=== PATIENT | male | born 1995 | race Caucasian/White ===

== ENCOUNTER 2020-09-11 16:22 | Emergency (ER) | payer BC, OTHER ==
--- OUTSIDE RECORDS SUMMARY | 2020-09-11 16:24 | XMS REPORT | Continuity of Care Document ---
:1995 Author Organization [facility] t Address [address] [place] [address] [address] [place] [address] Care Team Providers Name Role Phone Unavailable Unavailable Unavailable Problems This patient has no known problems. Allergies, Adverse Reactions, Alerts This patient has no known allergies or adverse reactions. Medications This patient has no known medications. Procedures This patient has no known procedures. Results This patient has no known results.
[2020-09-11] MEDS ORDERED: KETOROLAC 30 MG/ML INJ ONE (17:01)
[2020-09-11] MEDS ORDERED: dexAMETHasone 10 MG/ML VIAL ONE (17:01)
--- NOTE | 2020-09-11 17:49 | EDPHYS ---
Physician Documentation [facility] Name: Travis Nair Age: 24 yrs Sex: Male : 1995 Arrival Date: 09/11/2020 Time: 16:27 Bed 8 Private MD: ED Physician Jay Lambert HPI: 09/11 16:47 This 24 yrs old Male presents to ER via Ambulatory with complaints of Sore pm1 Throat. 16:47 The patient presents with sore throat. The patient describes throat pain as raw, pm1 scratchy. Onset: The symptoms/episode began/occurred 3 day(s) ago. Severity of symptoms: in the emergency department the symptoms are unchanged. Modifying factors: The symptoms are alleviated by nothing, the symptoms are aggravated by foods, swallowing, Patient's oral intake status: good unaware of sick contact. Associated signs and symptoms: Pertinent negatives cough, fever, vomiting. The patient has been recently seen by a physician: for apparently unrelated complaints, Root canal on Saturday. Historical: - Allergies: 16:40 No Known Allergies; sv - PMHx: 16:40 None; sv - PSHx: 16:40 None; sv - Immunization history:: Adult Immunizations up to date, Flu vaccine is not up to date. - Social history:: Smoking status: Patient denies any tobacco usage or history of. ROS: 16:47 Constitutional: Negative for fever, chills, and weight loss. pm1 16:47 Cardiovascular: Negative for chest pain, palpitations, and edema, Respiratory: Negative for shortness of breath, cough, wheezing, and pleuritic chest pain, Abdomen/GI: Negative for abdominal pain, nausea, vomiting, diarrhea, and constipation, MS/Extremity: Negative for injury and deformity, Skin: Negative for injury, rash, and discoloration. 16:47 Neuro: Negative for headache, weakness, numbness, tingling, and seizure. 16:47 ENT: Positive for sore throat, Negative for ear pain. 16:47 Neck: Positive for swollen nodes. Exam: 16:47 Constitutional: This is a well developed, well nourished patient who is awake, alert, pm1 and in no acute distress. Head/Face: Normocephalic, atraumatic. 16:47 Skin: Warm, dry with normal turgor. Normal color with no rashes, no lesions, and no evidence of cellulitis. MS/ Extremity: Pulses equal, no cyanosis. Neurovascular intact. Full, normal range of motion. 16:47 ENT: External ear(s): are unremarkable, Ear canal(s): are normal, TM's: Posterior pharynx: Airway: no evidence of obstruction, Tonsils: bilaterally enlarged, with erythema, no exudate, no ulcerations, Uvula: midline, erythema, that is moderate, peritonsillar mass, is not appreciated, pooling of secretions, is not appreciated. 16:47 Neck: Lymph nodes: lymphadenopathy is appreciated, anterior cervical nodes. 16:47 Cardiovascular: Exam negative for acute changes, Rate: normal, Rhythm: regular, Pulses: no pulse deficits are appreciated. 16:47 Respiratory: Exam negative for acute changes, respiratory distress, shortness of breath. 16:47 Neuro: Exam negative for acute changes, Orientation: is normal, Mentation: is normal, Motor: is normal, moves all fours. Vital Signs: 16:30 BP 134 / 101; Pulse 84; Resp 16; Pulse Ox 99% on R/A; vg1 16:38 BP 138 / 101; Pulse 91; Resp 16; Temp 96.9; Pulse Ox 98% ; Weight 108.86 kg; Height 5 sv ft. 10 in. (177.80 cm); 17:00 BP 126 / 91; Pulse 87; Resp 16; Pulse Ox 99% on R/A; vg1 17:30 BP 117 / 84; Pulse 85; Resp 14; Pulse Ox 99% on R/A; vg1 16:38 Body Mass Index 34.44 (108.86 kg, 177.80 cm) sv MDM: 16:34 Patient medically screened. pm1 17:47 Data reviewed: vital signs. Data interpreted: Pulse oximetry: on room air is 99 %. pm1 Interpretation: normal. Counseling: I had a detailed discussion with the patient and/or guardian regarding: the historical points, exam findings, and any diagnostic results supporting the discharge/admit diagnosis, lab results, the need for outpatient follow up, to return to the emergency department if symptoms worsen or persist or if there are any questions or concerns that arise at home. 09/11 16:43 Order name: Strep; Complete Time: 17:28 pm1 09/11 16:43 Order name: Flu; Complete Time: 18:36 pm1 09/11 17:27 Order name: Throat Culture EDMS Administered Medications: 16:53 Drug: Decadron 10 mg Route: IM; Site: left gluteus; vg1 17:26 Follow up: Response: No adverse reaction vg1 16:53 Drug: TORadol 60 mg Route: IM; Site: left gluteus; vg1 17:26 Follow up: Response: No adverse reaction; Pain is unchanged, physician notified vg1 Disposition: 18:09 Co-signature as Attending Physician, Jay Lambert MD. rn Disposition: 09/11/20 17:48 Discharged to Home. Impression: Acute pharyngitis. - Condition is Stable. - Discharge Instructions: Pharyngitis. - Medication Reconciliation Form, Thank You Letter, Antibiotic Education, Prescription Opioid Use form. - Follow up: Emergency Department; When: As needed; Reason: Worsening of condition. Follow up: Private Physician; When: 2 - 3 days; Reason: Recheck today's complaints, Continuance of care, Re-evaluation by your physician. - Problem is new. - Symptoms have improved. Signatures: Dispatcher [employer] EDMS Carla Nath RN Jay Osman MD MD rn Marinas, Patrick, [employer] pm1 Paulina Acosta RN RN vg1 Corrections: (The following items were deleted from the chart) 18:02 17:48 09/11/2020 17:48 Discharged to Home. Impression: Acute pharyngitis. Condition is vg1 Stable. Forms are Medication Reconciliation Form, Thank You Letter, Antibiotic Education, Prescription Opioid Use. Follow up: Emergency Department; When: As needed; Reason: Worsening of condition. Follow up: Private Physician; When: 2 - 3 days; Reason: Recheck today's complaints, Continuance of care, Re-evaluation by your physician. Problem is new. Symptoms have improved. pm1
--- NOTE | 2020-09-11 17:49 | ER ---
Nurse's Notes [facility] Name: Travis Nair Age: 24 yrs Sex: Male : 1995 Arrival Date: 09/11/2020 Time: 16:27 Bed 8 Private MD: Diagnosis: Acute pharyngitis Presentation: 09/11 16:38 Chief complaint: Patient states: sore throat/swelling x 3 days. Denies fever. Reports sv getting a root canal on Saturday is has 1 more dose of Amoxicillin. Coronavirus screen: Client denies travel out of the [place] in the last 14 days. At this time, the client does not indicate any symptoms associated with coronavirus-19. Ebola Screen: No symptoms or risks identified at this time. Initial Sepsis Screen: Does the patient meet any 2 criteria? No. Patient's initial sepsis screen is negative. Does the patient have a suspected source of infection? No. Patient's initial sepsis screen is negative. Risk Assessment: Do you want to hurt yourself or someone else? Patient reports no desire to harm self or others. Onset of symptoms was September 08, 2020. 16:38 Method Of Arrival: Ambulatory sv 16:38 Acuity: ARTEM 3 sv Historical: - Allergies: 16:40 No Known Allergies; sv - PMHx: 16:40 None; sv - PSHx: 16:40 None; sv - Immunization history:: Adult Immunizations up to date, Flu vaccine is not up to date. - Social history:: Smoking status: Patient denies any tobacco usage or history of. Screenin:35 Abuse screen: Denies threats or abuse. Nutritional screening: No deficits noted. vg1 Tuberculosis screening: No symptoms or risk factors identified. Fall Risk No fall in past 12 months (0 pts). No secondary diagnosis (0 pts). No IV (0 pts). Ambulatory Aid- Crutches/Cane/Walker (15 pts). Gait- Normal/Bed Rest/Wheelchair (0 pts) Mental Status- Oriented to own ability (0 pts). Total Shaffer Fall Scale indicates No Risk (0-24 pts). Assessment: 16:35 General: Appears in no apparent distress. comfortable, Behavior is calm, cooperative. vg1 Pain: Complains of pain in throat Pain currently is 8 out of 10 on a pain scale. Quality of pain is described as burning, Pain began 2-3 days ago. Neuro: Level of Consciousness is awake, alert, obeys commands, Oriented to person, place, time, situation. Cardiovascular: Patient's skin is warm and dry. Respiratory: Airway is patent Respiratory effort is even, unlabored, Respiratory pattern is regular, symmetrical. GI: No signs and/or symptoms were reported involving the gastrointestinal system. : No signs and/or symptoms were reported regarding the genitourinary system. EENT: Throat is reddened. Derm: Skin is pink, warm \T\ dry. Musculoskeletal: Range of motion: intact in all extremities. 17:27 Reassessment: Patient appears in no apparent distress at this time. No changes from vg1 previously documented assessment. Patient and/or family updated on plan of care and expected duration. Pain level reassessed. Patient is alert, oriented x 3, equal unlabored respirations, skin warm/dry/pink. Vital Signs: 16:30 BP 134 / 101; Pulse 84; Resp 16; Pulse Ox 99% on R/A; vg1 16:38 BP 138 / 101; Pulse 91; Resp 16; Temp 96.9; Pulse Ox 98% ; Weight 108.86 kg; Height 5 sv ft. 10 in. (177.80 cm); 17:00 BP 126 / 91; Pulse 87; Resp 16; Pulse Ox 99% on R/A; vg1 17:30 BP 117 / 84; Pulse 85; Resp 14; Pulse Ox 99% on R/A; vg1 16:38 Body Mass Index 34.44 (108.86 kg, 177.80 cm) sv ED Course: 16:27 Patient arrived in ED. ds1 16:34 Aidan Perez, ANGEL is PHCP. pm1 16:34 Jay Lambert MD is Attending Physician. pm1 16:34 Paulina Acosta, RN is Primary Nurse. vg1 16:38 Patient has correct armband on for positive identification. Bed in low position. Call vg1 light in reach. Pulse ox on. NIBP on. Door closed. 16:39 Triage completed. sv 16:40 Arm band placed on. sv 17:04 Flu Sent. vg1 17:04 Strep Sent. vg1 17:55 No provider procedures requiring assistance completed. Patient did not have IV access vg1 during this emergency room visit. Administered Medications: 16:53 Drug: Decadron 10 mg Route: IM; Site: left gluteus; vg1 17:26 Follow up: Response: No adverse reaction vg1 16:53 Drug: TORadol 60 mg Route: IM; Site: left gluteus; vg1 17:26 Follow up: Response: No adverse reaction; Pain is unchanged, physician notified vg1 Outcome: 17:48 Discharge ordered by MD. pm1 17:55 Discharged to home ambulatory, with family. vg1 17:55 Condition: good 17:55 Discharge instructions given to patient, family, Instructed on discharge instructions, follow up and referral plans. Demonstrated understanding of instructions, follow-up care. 18:02 Patient left the ED. vg1 Signatures: Carla Nath, RN RN Ledy Baker ds1 Aidan Perez, ANGEL C[employer] TRAINER pm1 Paulina Acosta RN RN vg1 Corrections: (The following items were deleted from the chart) 16:44 16:38 Pulse 91bpm; Resp 16bpm; Pulse Ox 98%; Temp 96.9F; 108.86 kg; Height 5 ft. 10 sv in.; BMI: 34.4; sv 16:44 16:38 Acuity: ARTEM 4 sv sv
[2020-09-11 22:26] VITALS: TEMP 96.9
[2020-09-11 22:27] VITALS: O2SAT 99
[2020-09-11 22:29] VITALS: BP 117/84
== END 2020-09-11 18:02 | disposition home or self-care (01) ==
LOC: ER 16:22
DX: J02.9 Acute pharyngitis, unspecified (principal)
CPT/HCPCS: 87070; 87081; 87804 ×2; 96372; 99284; J1100